=== PATIENT | female | born 1985 | race Two or more races ===

== ENCOUNTER 2019-11-14 13:36 | Emergency (ER) | payer MEDICAID ==
[~2019-11-14] VITALS: Ht 165.1 cm; Wt 82.0 kg
[2019-11-14] MEDS ORDERED: HYDROCODONE/ACETAMINOPHEN 5/325MG TABLET PO STA (15:41)
[2019-11-14 16:20] LABS: CLARITY URINE CLEAR (CLEAR); COLOR URINE YELLOW (YELLOW); KETONES URINE NEGATIVE (NEGATIVE); LEUKOCYTE ESTERASE URINE NEGATIVE (NEGATIVE); NITRITE URINE NEGATIVE (NEGATIVE); OCCULT BLOOD URINE NEGATIVE (NEGATIVE); PROTEIN URINE NEGATIVE (NEGATIVE); SPECIFIC GRAVITY URINE 1.026 (1.005-1.030); UROBILINOGEN URINE 0.2 E.U./dL (0.2-1.0)
[2019-11-14 17:29] LABS: BASOPHILS % 0.6 % (0.0-2.0); CHLORIDE 106 mEq/L (98-107); EOSINOPHILS % 2.5 % (0.0-5.0); HEMATOCRIT. 39.3 % (36.0-48.0); HEMOGLOBIN. 13.4 g/dL (12.0-16.0); LYMPHOCYTES % 19.6 % (20.0-50.0); MEAN CORPUSCULAR HEMOGLOBIN 28.7 pg (28.0-32.0); MEAN PLATELET VOLUME 9.4 fl (7.4-10.4); MONOCYTES % 6.2 % (2.0-8.0); NEUTROPHILS % 71.1 % (40.0-76.0); PLATELET 215 x1000/uL (130-400); RED BLOOD CELL COUNT 4.68 mill/uL (4.2-5.4); RED CELL DISTRIBUTION WIDTH 13.6 % (11.6-14.6)
[2019-11-14 18:30] VITALS: BP 120/80
== END 2019-11-14 19:06 | disposition home or self-care (01) ==
LOC: ER 13:36
DX: M54.5 Low back pain (principal); Z87.440 Personal history of urinary (tract) infections; Z87.898 Personal history of other specified conditions
CPT/HCPCS: 36415; 76770; 80053; 81003; 81025; 85025; 99284

== ENCOUNTER 2020-01-01 14:07 | Emergency (ER) | payer MEDICAID ==
[~2020-01-01] VITALS: Ht 170.2 cm; Wt 100.0 kg
[2020-01-01] MEDS ORDERED: IBUPROFEN 600MG TABLET PO ONE (14:45)
[2020-01-01 16:58] VITALS: BP 138/78
== END 2020-01-01 17:02 | disposition home or self-care (01) ==
LOC: ER 14:07
DX: S00.03XA Contusion of scalp, initial encounter (principal); S39.012A Strain of muscle, fascia and tendon of lower back, initial encounter; F41.9 Anxiety disorder, unspecified; Z98.890 Other specified postprocedural states; Z90.49 Acquired absence of other specified parts of digestive tract; Y04.0XXA Assault by unarmed brawl or fight, initial encounter; Y07.03 Male partner, perpetrator of maltreatment and neglect; Y93.89 Activity, other specified; Y92.89 Other specified places as the place of occurrence of the external cause
CPT/HCPCS: 81025; 99284

== ENCOUNTER 2021-12-12 03:25 | Emergency (ER) | payer MEDICAID, OTHER ==
[~2021-12-12] VITALS: Ht 165.1 cm; Wt 82.0 kg
[2021-12-12 03:28] VITALS: BP 134/86
== END 2021-12-12 04:12 | disposition home or self-care (01) ==
LOC: ER 03:25
DX: O26.92 Pregnancy related conditions, unspecified, second trimester (principal); Z3A.20 20 weeks gestation of pregnancy
CPT/HCPCS: 99283

== ENCOUNTER 2022-07-14 09:57 | Emergency (ER) | payer MEDICAID, OTHER ==
[~2022-07-14] VITALS: Ht 165.1 cm; Wt 91.0 kg
[2022-07-14] MEDS ORDERED: ACETAMINOPHEN 325MG TABLET PO ONE (10:15)
[2022-07-14] MEDS ORDERED: SODIUM CHLORIDE 0.9% 1,000 ML IV ONE (10:15)
[2022-07-14 10:58] LABS: BASOPHILS % 0.2 % (0.0-2.0); EOSINOPHILS % 0.3 % (0.0-5.0); HEMATOCRIT. 42.2 % (36.0-48.0); HEMOGLOBIN. 13.8 g/dL (12.0-16.0); LYMPHOCYTES % 7.7 % (20.0-50.0); MEAN CORPUSCULAR HEMOGLOBIN 27.1 pg (28.0-32.0); MEAN CORPUSCULAR VOLUME 82.9 fL (81.0-99.0); MEAN PLATELET VOLUME 9.3 fl (7.4-10.4); MONOCYTES % 5.3 % (2.0-8.0); NEUTROPHILS % 86.5 % (40.0-76.0); PLATELET 184 x1000/uL (130-400); RED BLOOD CELL COUNT 5.09 mill/uL (4.2-5.4); RED CELL DISTRIBUTION WIDTH 16.7 % (11.6-14.6)
[2022-07-14 11:06] LABS: CHLORIDE 104 mEq/L (98-107)
[2022-07-14 11:17] LABS: ETHANOL BLOOD < 10 mg/dL
[2022-07-14 11:34] LABS: HCG SCREEN NEGATIVE
[2022-07-14] MEDS ORDERED: ACET-2708 MT (12:42)
[2022-07-14] MEDS ORDERED: DICL500C MT (12:42)
[2022-07-14] MEDS ORDERED: BACITRACIN ZINC OINT UDPKT TOP NR (13:00)
[2022-07-14 13:14] LABS: CLARITY URINE CLOUDY (CLEAR); COLOR URINE ORANGE (YELLOW); KETONES URINE NEGATIVE (NEGATIVE); LEUKOCYTE ESTERASE URINE 2+ (NEGATIVE); NITRITE URINE POSITIVE (NEGATIVE); OCCULT BLOOD URINE 3+ (NEGATIVE); PROTEIN URINE 1+ (NEGATIVE); SPECIFIC GRAVITY URINE 1.026 (1.005-1.030)
[2022-07-14] MEDS ORDERED: IOHEXOL-300 100 ML BOTTLE ONE (13:21)
[2022-07-14 13:37] VITALS: BP 148/82
[2022-07-14 14:04] LABS: *BARBITURATES SCREEN URINE NEGATIVE (NEGATIVE); *BENZODIAZEPINES SCREEN URINE NEGATIVE (NEGATIVE); *COCAINE SCREEN URINE NEGATIVE (NEGATIVE); METHADONE URINE SCREEN NEGATIVE (NEGATIVE); OPIATES URINE SCREEN NEGATIVE (NEGATIVE); PHENCYCLIDINE URINE SCREEN NEGATIVE (NEGATIVE)
[2022-07-14 14:05] LABS: *AMPHETAMINES SCREEN URINE PRESUMTIVE POSITIVE (NEGATIVE); CANNABINOID URINE SCREEN PRESUMTIVE POSITIVE (NEGATIVE)
== END 2022-07-14 13:51 | disposition home or self-care (01) ==
LOC: ER 09:57
DX: O90.0 Disruption of cesarean delivery wound (principal); I10 Essential (primary) hypertension; Z98.890 Other specified postprocedural states; Z90.49 Acquired absence of other specified parts of digestive tract
CPT/HCPCS: 12001; 36415; 74177; 80053; 80305; 80320; 81003; 83690; 84703; 85025; 87077; 87086; 87186; 96360; 99285; J7030; Q9967; Z7610; G0480

== ENCOUNTER 2025-04-13 11:55 | Inpatient (IN) | payer MEDICAID ==
[~2025-04-13] VITALS: Ht 167.6 cm; Wt 99.8 kg
[~2025-04-13 11:55] MED LIST: ACET-2708 MT; DICL500C MT
[2025-04-13 12:05] VITALS: O2SAT 100
[2025-04-13] MEDS: ACETAMINOPHEN 500MG TABLET PO ONE (12:39)
[2025-04-13 12:57] LABS: CREATININE 0.6 mg/dL (0.6-1.0); UREA NITROGEN BLOOD 11 mg/dL (9-23)
[2025-04-13 12:59] LABS: ASPARTATE AMINOTRANSFERASE 17 IU/L (<34); BILIRUBIN DIRECT 0.2 mg/dL (<=3.0); BILIRUBIN TOTAL 0.9 mg/dL (0.1-1.0); PROTEIN TOTAL 7.4 g/dL (6.0-8.3)
[2025-04-13 13:11] LABS: BASOPHILS % 0.5 % (0.0-2.0); EOSINOPHILS % 1.0 % (0.0-5.0); HEMATOCRIT. 36.8 % (36.0-48.0); HEMOGLOBIN. 11.6 g/dL (12.0-16.0); LYMPHOCYTES % 17.6 % (20.0-50.0); MEAN PLATELET VOLUME 8.8 fl (7.4-10.4); MONOCYTES % 6.3 % (2.0-8.0); NEUTROPHILS % 74.6 % (40.0-76.0); PLATELET 256 x1000/uL (130-400); RED BLOOD CELL COUNT 4.93 mill/uL (4.2-5.4); RED CELL DISTRIBUTION WIDTH 16.0 % (11.6-14.6)
[2025-04-13] MEDS: MORPHINE SULFATE 4 MG/ML INJ (FOR IV/IM USE) IV ONE (14:05)
[2025-04-13] MEDS: ONDANSETRON HCL 4MG/2ML INJ IV ONE (14:05)
[2025-04-13 14:18] LABS: ETHANOL BLOOD < 10 mg/dL (<10); INR 1.0; TROPONIN I HIGH SENSITIVITY < 4 ng/L (3.0-34)
[2025-04-13 14:26] LABS: HCG SCREEN NEGATIVE
[2025-04-13 14:37] LABS: CLARITY URINE SL HAZY (CLEAR); COLOR URINE YELLOW (YELLOW); GLUCOSE URINE NEGATIVE (NEGATIVE); KETONES URINE NEGATIVE (NEGATIVE); PH URINE 5.5 (4.5-8.0); PROTEIN URINE NEGATIVE (NEGATIVE); SPECIFIC GRAVITY URINE 1.030 (1.005-1.030)
[2025-04-13 14:38] LABS: LEUKOCYTE ESTERASE URINE NEGATIVE (NEGATIVE); NITRITE URINE POSITIVE (NEGATIVE); OCCULT BLOOD URINE NEGATIVE (NEGATIVE); UROBILINOGEN URINE 0.2 E.U./dL (0.2-1.0)
[2025-04-13 14:41] LABS: WBC URINE 0-2 /hpf (0-2)
[2025-04-13 14:42] LABS: BACTERIA URINE 3+; RBC URINE NONE SEEN /hpf (0-2); SQUAMOUS EPITHELIAL CELL URINE RARE /lpf (RARE/1+)
[2025-04-13 15:47] LABS: *AMPHETAMINES SCREEN URINE PRESUMPTIVE POSITIVE (NEGATIVE); *BENZODIAZEPINES SCREEN URINE NEGATIVE (NEGATIVE)
[2025-04-13 15:48] LABS: *BARBITURATES SCREEN URINE NEGATIVE (NEGATIVE); *COCAINE SCREEN URINE NEGATIVE (NEGATIVE); CANNABINOID URINE SCREEN PRESUMPTIVE POSITIVE (NEGATIVE); ECSTASY MDMA SCREEN URINE CONF.TEST INDICATED (NEGATIVE); METHADONE URINE SCREEN NEGATIVE (NEGATIVE); OPIATES URINE SCREEN NEGATIVE (NEGATIVE); PHENCYCLIDINE URINE SCREEN NEGATIVE (NEGATIVE)
[2025-04-13] MEDS ORDERED: ACETAMINOPHEN 325MG TABLET PO PRN (18:00)
[2025-04-13] MEDS ORDERED: CLONIDINE 0.1MG TABLET PO PRN (18:00)
[2025-04-13] MEDS ORDERED: ONDANSETRON HCL 4MG/2ML INJ IV PRN (18:00)
[2025-04-13] MEDS ORDERED: DOCUSATE SODIUM 100MG CAPSULE PO PRN (18:00)
[2025-04-13] MEDS ORDERED: MORPHINE SULFATE 2 MG/ML INJ (NOT FOR IM USE) IV PRN (18:00)
[2025-04-13] MEDS ORDERED: IPRATROPIUM/ALBUTEROL 0.5-3(2.5)MG/3ML NEB HHN PRN (18:00)
[2025-04-13] MEDS: MORPHINE SULFATE 4 MG/ML INJ (FOR IV/IM USE) IV PRN (18:11)
[2025-04-13] MEDS ORDERED: NALOXONE HCL 0.4MG/ML VIAL IV PRN (18:15)
[2025-04-13] MEDS ORDERED: CEFTRIAXONE 1GM/50ML 50 ML IV SCH (20:00)
[2025-04-13] MEDS: SODIUM CHLORIDE 0.9% 1,000 ML IV SCH (20:37)
[2025-04-13] MEDS: ACETAMINOPHEN 325MG TABLET PO PRN (21:23)
[2025-04-13] MEDS: CEFTRIAXONE 1GM/50ML 50 ML IV SCH (21:23)
[2025-04-13] MEDS ORDERED: INFLUENZA VACCINE 05/PF 0.5 ML SYRINGE IM ONE (22:00)
[2025-04-13] MEDS ORDERED: METRONIDAZOLE 500 MG PREMIX 100 ML IV SCH (22:00)
[2025-04-13 22:08] VITALS: BP 124/68; PULSE 88; RESP 20; TEMP 36.6404
[2025-04-13] MEDS: METRONIDAZOLE 500 MG PREMIX 100 ML IV SCH (22:58)
[2025-04-13] MEDS ORDERED: IOHEXOL-300 100 ML BOTTLE ONE (23:32)
[2025-04-14] VITALS: BP 112/69; PULSE 89; RESP 19; TEMP 36.6; O2SAT 99
[2025-04-14 04:00] VITALS: BP 97/63; PULSE 80; RESP 20; TEMP 36.6; O2SAT 99
[2025-04-14 06:37] LABS: BASOPHILS % 0.5 % (0.0-2.0); EOSINOPHILS % 2.4 % (0.0-5.0); HEMATOCRIT. 33.8 % (36.0-48.0); HEMOGLOBIN. 10.7 g/dL (12.0-16.0); LYMPHOCYTES % 23.4 % (20.0-50.0); MEAN PLATELET VOLUME 8.9 fl (7.4-10.4); MONOCYTES % 9.1 % (2.0-8.0); NEUTROPHILS % 64.6 % (40.0-76.0); PLATELET 207 x1000/uL (130-400); RED BLOOD CELL COUNT 4.53 mill/uL (4.2-5.4); RED CELL DISTRIBUTION WIDTH 15.8 % (11.6-14.6)
[2025-04-14 06:46] LABS: CREATININE 0.7 mg/dL (0.6-1.0); UREA NITROGEN BLOOD 13 mg/dL (9-23)
[2025-04-14 06:48] LABS: ASPARTATE AMINOTRANSFERASE 12 IU/L (<34); BILIRUBIN TOTAL 0.7 mg/dL (0.1-1.0); PROTEIN TOTAL 6.2 g/dL (6.0-8.3)
[2025-04-14 08:00] VITALS: BP_SYST 123; BP_DIAS 63; BP_DIAS 74; PULSE 84; RESP 18; RESP 20; TEMP 36.5; O2SAT 98
== END 2025-04-14 10:28 | disposition left against medical advice (07) ==
LOC: ER 11:55 → EDBEDREQ 16:25 → EDBEDREQSVC 16:25 → EDBEDREQTM 16:25 → 7EST 20:48
PROVIDERS: ADMIT Internal Medicine; ATTEND Internal Medicine
DX: K83.09 Other cholangitis (principal); I10 Essential (primary) hypertension; K80.20 Calculus of gallbladder without cholecystitis without obstruction; Z53.21 Procedure and treatment not carried out due to patient leaving prior to being seen by health care provider; Z90.49 Acquired absence of other specified parts of digestive tract
CPT/HCPCS: 36415; 74177; 76705; 80048; 80053; 80076; 80305; 80320; 81003; 83735; 83880; 84484; 84703; 85025; 99285; J0696; J2270; J2405; J3490; Q9967; G0480